=== PATIENT | male | born 1980 | race Caucasian/White ===

== ENCOUNTER 2018-03-20 11:23 | Emergency (ER) | payer OTHER ==
[2018-03-20 11:28] VITALS: BP 150/109
--- NOTE | 2018-03-20 11:33 | ER Report ---
History and Physical Time Seen By MD: 11:32 Hx. of Stated Complaint: CUT TO LEFT MIDDLE FINGER WITH KNIFE. HPI/ROS CHIEF COMPLAINT: Laceration HISTORY OF PRESENT ILLNESS: 49-year-old male patient presents to emergency room with complaint of laceration to the left middle finger. Patient states that he was hunting and was skinning a deer when someone with a deer. The resulted in him cutting himself just proximal to the PIP joint. Patient states he did have significant amounts of bleeding. He denies having numbness tingling. He states he does have some pain. Patient has not taken any medication for this. He states he is unsure of his last tetanus shot. Patient states he is not able to extend or flex his finger. Allergies: Coded Allergies: No Known Drug Allergies (Unverified , 03/20/18) Home Meds Active Scripts Hydrocodone Bit/Acetaminophen (HYDROCODON-ACETAMINOPHEN 5-325) 1 Each Tablet, 1 EACH PO Q4-6H PRN for PAIN, #6 TAB Prov:CHARITY HU [facility] 03/20/18 Cephalexin 500 Mg Tab (KEFLEX 500 MG TAB) 500 Mg Tablet, 500 MG PO Q6H, #28 TAB Prov:PRIYA HUSSE [facility] 03/20/18 Past Medical/Surgical History Patient has no pertinent medical or surgical history. Reviewed Nurses Notes: Yes Constitutional Vital Sign - Last 24 Hours 03/20/18 11:28 Temp 97.7 Pulse 80 Resp 18 B/P (MAP) 150/109 Pulse Ox 94 O2 Delivery Room Air Physical Exam General appearance: Alert no distress. Respiratory: Chest is non tender, lungs are clear to auscultation. Cardiac: Regular rate and rhythm. Skin: Patient has a 2.5 cm laceration to the palmar aspect of the left third finger. It does go into the subcutaneous tissue and appears that the flexor tendon has been cut. Patient was unable to flex his finger but was able to extend his finger had good strength with that. DIFFERENTIAL DIAGNOSIS: After history and physical exam differential diagnosis was considered for laceration, tendon injury. Medical Decision Making ED Course/Re-evaluation ED Course Patient was admitted to exam room, history of physical were obtained. Differential diagnoses were considered. On examination patient has 2.5 cm laceration to the left third finger. It does go into the subcutaneous tissue. It appears that he has cut the flexor tendon. Patient was able to extend his finger but it was unable to flex it. Patient had good sensation distally and brisk capillary refill. Patient did have significant amounts of bleeding. We did place him in a Tourni-cot, the finger was anesthetized, cleaned and repaired as described below. Due to the injury of the tendon I will have him follow-up with orthopedics in [facility] in [place]. He is to call on Thursday to make an appointment. I would like him to monitor for signs of infection. We will go ahead and put him on some antibiotics as well as a limited supply of pain medication. He is return to emergency room if condition worsens. Patient verbalized understanding and agreement with plan. Procedure: Laceration repair. Verbal consent was obtained from the patient. The 2.5 cm laceration on the left third finger, palmar aspect proximal to the PIP joint was anesthetized in the usual fashion. The wound was scrubbed, draped and explored to its base with a gloved finger. There were no deep structures involved. There did appear to be laceration of the flexor tendon. The wound was repaired with 6 simple interrupted sutures using 5-0 Prolene material. The wound repair was simple. The procedure was performed by myself. Hemostasis was obtained after the laceration repair. Decision to Disposition Date: Mar 20, 2018 Decision to Disposition Time: 12:40 Depart Departure Latest Vital Signs Vital Signs Date Time Temp Pulse Resp B/P (MAP) Pulse Ox O2 Delivery O2 Flow Rate FiO2 03/20/18 11:28 97.7 80 18 150/109 94 Room Air Impression: Primary Impression: Laceration of finger Additional Impression: Flexor tendon laceration, finger, open wound Condition: Improved Disposition: HOME OR SELF-CARE New Scripts Hydrocodone Bit/Acetaminophen (HYDROCODON-ACETAMINOPHEN 5-325) 1 Each Tablet 1 EACH PO Q4-6H PRN for PAIN, #6 TAB Prov: CHARITY HU 03/20/18 Cephalexin 500 Mg Tab (KEFLEX 500 MG TAB) 500 Mg Tablet 500 MG PO Q6H, #28 TAB Prov: CHARITY HU 03/20/18 Patient Instructions: Finger Laceration (ED) Additional Instructions: Keep wound dry for 48 hours. Follow up with [facility], call Thursday to make an appointment. Monitor for signs of infection; redness, swelling, heat, discharge, increasing pain or red streaking. Take Ibuprofen as needed for pain. Return to the ER with any concerns. You may change dressing as needed. Wear the splint all the time except for when bathing. Problem Qualifiers Primary Impression: Laceration of finger Encounter type: initial encounter Finger: middle finger Damage to nail status: without damage Foreign body presence: without foreign body Laterality: left Qualified Codes: S61.213A - Laceration without foreign body of left middle finger without damage to nail, initial encounter Additional Impression: Flexor tendon laceration, finger, open wound Encounter type: initial encounter Qualified Codes: S56.129A - Laceration of flexor muscle, fascia and tendon of unspecified finger at forearm level, initial encounter; S61.209A - Unspecified open wound of unspecified finger without damage to nail, initial encounter CHARITY HU Mar 20, 2018 11:33
[2018-03-20] MEDS ORDERED: DIPHTH/TETANUS/ACEL. PERTUSSIS IM ONLY ONE (12:05)
[2018-03-20] MEDS ORDERED: HYDR-385 PO (12:39)
[2018-03-20] MEDS ORDERED: CEPH500T7 PO (12:39)
== END 2018-03-20 12:45 | disposition home or self-care (01) ==
LOC: ER 11:26
DX: S61.213A Laceration without foreign body of left middle finger without damage to nail, initial encounter (principal); S61.209A Unspecified open wound of unspecified finger without damage to nail, initial encounter; W26.0XXA Contact with knife, initial encounter
CPT/HCPCS: 90471; 90715; 99283